=== PATIENT | female | born 1990 | race Caucasian/White ===

== ENCOUNTER 2017-07-28 04:20 | Outpatient (CLI) ==
[2017-07-28 04:40] LABS: BILIRUBIN,URINE Negative (NEGATIVE); KETONES,URINE Negative (NEGATIVE); LEUKOCYTE ESTERASE ,URINE 1+ (NEGATIVE); NITRITE,URINE Negative (NEGATIVE); PROTEIN,URINE Negative (NEGATIVE); URINE, BLOOD Trace-intact (NEGATIVE)
[2017-07-28 04:46] LABS: ADD URINE MICROSCOPIC YES; BACTERIA,URINE TRACE (NOT PRESENT)
[2017-07-29 07:19] LABS: RAPID PLASMA REAGIN Non Reactive (Non Reactive)
[2017-07-29 13:19] LABS: VARICELLA IGG ANTIBODY 347 index (Immune >165)
== END 2017-07-28 04:21 | disposition home or self-care (01) ==
LOC: LAB 04:20
DX: Z34.01 Encounter for supervision of normal first pregnancy, first trimester (principal)
CPT/HCPCS: 36415; 81001; 86592; 86701; 86762; 86787; 86850; 86900; 87340

== ENCOUNTER 2017-12-02 05:15 | Outpatient (CLI) | END 2017-12-02 05:16 | disposition home or self-care (01) | LOC: LAB 05:15 | PROVIDERS: ATTEND Nurse Practitioner Family | DX: Z34.83 Encounter for supervision of other normal pregnancy, third trimester (principal) | CPT/HCPCS: 36415; 82947; 85014; 85018; 86902 ==

== ENCOUNTER 2017-12-21 04:33 | Outpatient (CLI) | END 2017-12-21 04:34 | disposition home or self-care (01) | LOC: LAB 04:33 | PROVIDERS: ATTEND Obstetrics & Gynecology | DX: Z34.03 Encounter for supervision of normal first pregnancy, third trimester (principal) | CPT/HCPCS: 36415; 87389 ==